=== PATIENT | female | born 1970 ===

== ENCOUNTER 2023-06-03 12:21 | Day surgery (SDC) | payer OTHER ==
[~2023-06-03] VITALS: Ht 172.7 cm; Wt 70.3 kg
[2023-06-03] MEDS ORDERED: LIDOCAINE/EPI MPF 1%1:200000 30 ML VIAL INJ ONE (12:46)
[2023-06-03] MEDS ORDERED: BUPIVACAINE-MPF 0.25% 30 ML VIAL INJ ONE (12:46)
[2023-06-03] MEDS ORDERED: FERRIC SUBSULFATE 20%-22%-8 ML PASTE ONE (12:46)
[2023-06-03] MEDS ORDERED: fentaNYL citrate 0.05 MG/ML - 50mL vial IV ONE (14:00)
[2023-06-03] MEDS ORDERED: ceFAZolin 2,000 MG VIAL ONE (14:00)
[2023-06-03] MEDS ORDERED: DEXAMETHASONE 4 MG/ML VIAL ONE ×2 (14:00→14:04)
[2023-06-03] MEDS ORDERED: GLYCOPYRROLATE 0.2 MG/ML VIAL ONE ×3 (14:00→15:32)
[2023-06-03] MEDS ORDERED: SEVOFLURANE 250 ML BTL INH ONE (14:00)
[2023-06-03] MEDS ORDERED: ROCURONIUM 50 MG/5 ML VIAL IV ONE ×2 (14:00→14:04)
[2023-06-03] MEDS ORDERED: ONDANSETRON 4 MG/2 ML VIAL ONE ×2 (14:00→14:04)
[2023-06-03] MEDS ORDERED: ETOMIDATE 20 MG/10 ML VIAL IVP ONE ×2 (14:00→14:04)
[2023-06-03] MEDS ORDERED: METOCLOPRAMIDE 10 MG/2 ML INJ VIAL ONE (14:04)
[2023-06-03] MEDS ORDERED: fentaNYL citrate 0.05 MG/ML VIAL ONE ×2 (14:04→14:05)
[2023-06-03] MEDS ORDERED: LIDOCAINE 2% 100 MG/5 ML SYR IVP ONE ×4 (14:04→14:07)
[2023-06-03] MEDS ORDERED: CONJUGATED ESTROGENS VAG CREAM 42 GM TUBE VG SCH (14:11)
[2023-06-03] MEDS ORDERED: ONDANSETRON 4 MG/2 ML VIAL IVP PRN ×2 (14:15→15:40)
[2023-06-03] MEDS ORDERED: oxyCODONE/APAP 5/325 MG 1 TAB TAB PO PRN (14:15)
[2023-06-03] MEDS ORDERED: diphenhydrAMINE 50 MG/ML VIAL IVP PRN (14:15)
[2023-06-03] MEDS ORDERED: NEOSTIGMINE 1:1000 10 MG/10 ML VIAL ONE (15:31)
[2023-06-03] MEDS ORDERED: HYDROmorphone 1 MG/ML AMP IVP PRN (15:40)
[2023-06-03] MEDS ORDERED: MEPERIDINE 25 MG/ML SYR IVP PRN (15:40)
[2023-06-03] MEDS ORDERED: MEPERIDINE 25 MG/ML SYR ONE (15:45)
== END 2023-06-03 18:08 | disposition home or self-care (01) ==
LOC: MDS 12:21 → MMU 12:37 → MDS 18:08
PROVIDERS: ATTEND Obstetrics & Gynecology
DX: N81.10 Cystocele, unspecified (principal); N88.8 Other specified noninflammatory disorders of cervix uteri; E03.9 Hypothyroidism, unspecified; N94.10 Unspecified dyspareunia; N81.11 Cystocele, midline; F41.9 Anxiety disorder, unspecified; Z98.82 Breast implant status; N95.1 Menopausal and female climacteric states; Z79.899 Other long term (current) drug therapy
CPT/HCPCS: 36415; 57240; 57500; 86886; 86900; 86901; 88305; 93005; J0690; J1100; J2001; J2175; J2405; J2710; J2765; J3010; J3490; J7030; J7060